=== PATIENT | female | born 1970 | race Caucasian/White ===

== ENCOUNTER 2017-02-20 23:03 | Emergency (ER) | payer OTHER ==
[2017-02-20 23:28] LABS: BASOPHIL 0.3 % (0-2); EOSINOPHIL 1.3 % (0-5); HCT 34.7 % (37.0-47.0); HGB 12.1 g/dl (12.5-16.0); LYMPHOCYTE 49.2 % (15-48); MCH 29.4 pg (25.0-31.0); MCHC 34.9 g/dL (32.0-36.0); MCV 84.2 fL (78.0-100.0); MONOCYTE 6.9 % (0-12); NEUTROPHIL 42.3 % (41-80); PLT 378 K/uL (150-400); RBC 4.12 M/uL (4.20-5.40); WBC 11.9 K/uL (4.0-10.5)
[2017-02-20 23:38] LABS: CREATININE 1.2 mg/dL (0.5-1.0); POTASSIUM 2.6 mmol/L (3.5-5.1)
[2017-02-21 01:33] LABS: BILIRUBIN NEGATIVE (NEGATIVE); BLOOD NEGATIVE Ery/uL (NEGATIVE); CLARITY CLEAR (CLEAR); COLOR COLORLESS (YELLOW); GLUCOSE (U) NORMAL (NORMAL); KETONE (U) NEGATIVE (NEGATIVE); LEUKOCYTES NEGATIVE Leu/uL (NEGATIVE); NITRITE NEGATIVE (NEGATIVE); PROTEIN NEGATIVE (NEGATIVE); SPECIFIC GRAVITY <=1.005 (1.001-1.030); UROBILINOGEN 0.2 mg/dL (0.2-1.0)
== END 2017-02-21 02:00 | disposition home or self-care (01) ==
LOC: FER 23:03
PROVIDERS: Emergency Medicine
DX: E11.649 Type 2 diabetes mellitus with hypoglycemia without coma (principal); T38.3X5A Adverse effect of insulin and oral hypoglycemic [antidiabetic] drugs, initial encounter; I10 Essential (primary) hypertension; J45.909 Unspecified asthma, uncomplicated; Z79.4 Long term (current) use of insulin; Z79.51 Long term (current) use of inhaled steroids; Z79.899 Other long term (current) drug therapy; Z88.2 Allergy status to sulfonamides; Z88.1 Allergy status to other antibiotic agents
CPT/HCPCS: 36415; 80048; 81003; 85025